=== PATIENT | female | born 2005 ===

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

== ENCOUNTER 2025-05-26 19:39 | Emergency (ER) | payer OTHER ==
[~2025-05-26] VITALS: Ht 160 cm; Wt 60.0 kg
--- NOTE | 2025-05-26 20:14 | ED.PDOC ---
General HPI Comments 19-year-old female complains of intermittent sharp pelvic pain that radiates to her lower back and lower abdomen at times. Patient also noted some swollen lymph nodes in her pelvic area. Chief Complaint: Pelvic Pain Time Seen by MD: 20:00 Allergies: Coded Allergies: NO KNOWN ALLERGIES (Unverified , 06/17/21) Home Meds Active Scripts Metronidazole (Flagyl) 500 Mg Tab, 1 TAB PO BID for 7 Days, #14 TAB Prov:MARILYN TREVINO MD 05/26/25 Sulfamethoxazole W/Trimethopri (Bactrim Ds Tablet) 1 Tab Tb, 1 TAB PO BID for 7 Days, #14 TAB Prov:MARILYN TREVINO MD 05/26/25 Information Source: Patient Mode of Arrival: Ambulatory Severity: Moderate Timing: Days Duration: Since onset, Intermittent Past Medical History PAST MEDICAL HISTORY: Denies Family History Family History: Reviewed,noncontributory to illness Social History Smoker: Non-Smoker Alcohol: Denies ETOH Use Drugs: Denies Drug Use Lives In: Home Constitutional: reports: malaise Gastrointestinal: reports: abdominal pain, nausea Genitourinary: reports: pain All Other Systems: Reviewed and Negative Physical Exam General Appearance: Mild Distress HEENT: Normal ENT Inspection, Pharynx Normal, TMs Normal Neck: Full Range of Motion, Non-Tender, Normal, Normal Inspection Respiratory: Chest Non-Tender, Lungs Clear, No Accessory Muscle Use, No Respiratory Distress, Normal Breath Sounds Cardiovascular: No Edema, No JVD, No Murmur, No Gallop, Normal Peripheral Pulses, Regular Rate/Rhythm Breast Exam: Deferred Gastrointestinal: Tenderness Genitalia: Deferred Pelvic: Deferred Rectal: Deferred Extremities: No calf tenderness, Normal capillary refill, Normal inspection, Normal range of motion, Non-tender, No pedal edema Musculoskeletal : Apperance: Normal Neurologic: Alert, 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 Was a procedure done?: No Differential Diagnosis Kidney stone (Female): Aortic dissection, , Appendicitis, Bowel obstruction, Cholelithiasis, Ectopic , Pancreatitis, Pyelonephritis, Renal failure, Urinary obstruction, Urolithiasis, Other X-Ray, Labs, Meds, VS Vital Signs Date Time Temp Pulse Resp B/P (MAP) Pulse Ox O2 Delivery O2 Flow Rate FiO2 05/26/25 22:42 98.2 75 14 115/62 (79) 98 98.2 05/26/25 19:41 98.4 88 18 120/75 100 98.4 Lab Test 05/26/25 20:35 05/26/25 20:13 Range/Units Urine Color Yellow Yellow Urine Clarity Clear Clear Urine pH 6.0 5.0-9.0 Urine Specific [place] 1.027 1.001-1.035 Urine Protein Negative Negative Urine Ketones Trace Negative Urine Blood Trace H Negative /uL Urine Nitrite Negative Negative Urine Bilirubin Negative Negative Urine Urobilinogen Normal Negative mg/dL Urine Leukocyte Esterase 2+ Negative /uL Urine RBC 3 0 - 4 /hpf Urine Microscopic WBC 17 H 0-5 /HPF Urine Squamous Epithelial Cells Few <5 /hpf Urine Bacteria Few H None Seen /hpf Urine Mucus Few None Seen Urine Glucose Normal Normal mg/dL Urine Test Negative Negative Chlamydia trachomatis (MAYURI) Pending Neisseria gonorrhoeae (MAYURI) Pending White Blood Count 8.3 4.4-10.8 10^3/uL Red Blood Count 4.68 4.0-5.20 10^6/uL Hemoglobin 13.1 12.2-16.2 g/dL Hematocrit 38.5 36.0-46.0 % Mean Corpuscular Volume 82.2 80.0-100.0 fL Mean Corpuscular Hemoglobin 27.9 L 28.0-32.0 pg Mean Corpuscular Hemoglobin Concent 34.0 32.0-36.0 g/dL Red Cell Distribution Width 13.6 11.8-14.3 % Platelet Count 221 140-450 10^3/uL Mean Platelet Volume 10.3 6.9-10.8 fL Neutrophils (%) (Auto) 66.2 37.0-80.0 % Lymphocytes (%) (Auto) 23.5 10.0-50.0 % Monocytes (%) (Auto) 8.2 0.0-12.0 % Eosinophils (%) (Auto) 1.4 0.0-7.0 % Basophils (%) (Auto) 0.7 0.0-2.0 % Neutrophils # (Auto) 5.5 1.6-8.6 10 ^3/uL Lymphocytes # (Auto) 1.9 0.4-5.4 10 ^3/uL Monocytes # (Auto) 0.7 0-1.3 10 ^3/uL Eosinophils # (Auto) 0.1 0-0.8 10 ^3/uL Basophils # (Auto) 0.1 0-0.2 10 ^3/uL Nucleated Red Blood Cells 0.1 % Sodium Level 142 136-145 mmol/L Potassium Level 3.7 3.5-5.1 mmol/L Chloride Level 106 98-107 mmol/L Carbon Dioxide Level 26 20-31 mmol/L Anion Gap 10 5-15 Blood Urea Nitrogen 8 L 9-23 mg/dL Creatinine 0.82 0.550-1.02 mg/dL Glomerular Filtration Rate Calc 104 >90 mL/min BUN/Creatinine Ratio 9.8 L 10.0-20.0 Serum Glucose 105 74-106 mg/dL Calcium Level 9.0 8.7-10.4 mg/dL Current Medications Medications (Trade) Dose Ordered Sig/Marimar Route Start Time Stop Time Status Last Admin Ceftriaxone Sodium (Rocephin W Lidocaine IM) 500 mg ONCE ONCE IM 05/26/25 20:45 05/26/25 20:46 DC 05/26/25 20:45 Azithromycin (Zithromax Tablet) 1,000 mg ONCE ONCE PO 05/26/25 20:45 05/26/25 20:46 DC 05/26/25 20:45 Time of 1ST Reevaluation: 20:13 Reevaluation 1ST: Unchanged Patient Education/Counseling: Diagnosis, Treatment Family Education/Counseling: No Family Present SEPSIS Sepsis Screen Date sepsis recognized/suspect: May 26, 2025 Time Sepsis recognized/suspect: 1943 Recent Procedure: No On Antibiotic Therapy: Yes (CEFALEXIN, NITROFURANTIN ) Respiratory Rate >20: No Heart Rate >90: No Temp<36 C (96.8 F) or >38.3 C: No SBP <90 or MAP <65 mmHG: No New Acute Mental Status Change: No Is the patient on CPAP, BIPAP,: No Physician Orders Pelvic (05/26/25 20:01) Chlamydia/Gc Amplification (05/26/25 20:14) Vital Signs Date Time Temp Pulse Resp B/P (MAP) Pulse Ox O2 Delivery O2 Flow Rate FiO2 05/26/25 22:42 98.2 75 14 115/62 (79) 98 98.2 05/26/25 19:41 98.4 88 18 120/75 100 98.4 Laboratory Tests Test 05/26/25 20:13 White Blood Count 8.3 10^3/uL (4.4-10.8) Medications Medications Dose Ordered Sig/Marimar Route Start Time Stop Time Status Last Admin Dose Admin Azithromycin 1,000 mg ONCE ONCE PO 05/26/25 20:45 05/26/25 20:46 DC 05/26/25 20:45 Ceftriaxone Sodium 500 mg ONCE ONCE IM 05/26/25 20:45 05/26/25 20:46 DC 05/26/25 20:45 Departure 1 Departure Time of Disposition: 22:00 Impression: Primary Impression: Pelvic pain Disposition: 01 HOME / SELF CARE / HOMELESS Condition: Stable e-Prescriptions Metronidazole (Flagyl) 500 Mg Tab 1 TAB PO BID for 7 Days, #14 TAB Prov: MARILYN TREVINO MD 05/26/25 Sulfamethoxazole W/Trimethopri (Bactrim Ds Tablet) 1 Tab Tb 1 TAB PO BID for 7 Days, #14 TAB Prov: MARILYN TREVINO MD 05/26/25 Discharged With: Self Critical Care Note Critical Care Time?: No Stability Stability form required: No Heart Score Heart Score: Heart Score Response (Comments) Value History N/A 0 EKG N/A 0 Age N/A 0 Risk Factors N/A 0 Troponin N/A 0 Total 0 MARILYN TREVINO MD May 26, 2025 20:14
[2025-05-26 20:25] LABS: Hematocrit 38.5 % (36.0-46.0); Hemoglobin 13.1 g/dL (12.2-16.2); Mean Corpuscular Hemoglobin 27.9 pg (28.0-32.0); Mean Corpuscular Volume 82.2 fL (80.0-100.0); Nucleated Red Blood Cells % 0.1 %
[2025-05-26 20:29] LABS: Chloride 106 mmol/L (98-107); Potassium 3.7 mmol/L (3.5-5.1); Sodium 142 mmol/L (136-145)
[2025-05-26 20:30] LABS: Anion Gap 10 (5-15); Carbon Dioxide 26 mmol/L (20-31)
[2025-05-26 20:31] LABS: Calcium 9.0 mg/dL (8.7-10.4)
[2025-05-26 20:35] LABS: BUN/Creatinine Ratio 9.8 (10.0-20.0); Glucose 105 mg/dL (74-106)
[2025-05-26 20:37] LABS: Blood Urea Nitrogen 8 mg/dL (9-23)
[2025-05-26] MEDS: AZITHROMYCIN 250 MG TAB PO ONE (20:45)
[2025-05-26] MEDS: cefTRIAXone W LIDOCAINE 500 MG IM IM ONE (20:45)
--- NOTE | 2025-05-26 21:01 | DVH ---
EXAM: US PELVIC HISTORY: pelvic pain COMPARISON: None TECHNIQUE: Transabdominal imaging was utilized. Grayscale and color doppler evaluation. Images were stored in the patient's permanent medical record. FINDINGS: UTERUS: 6.4 x 3.4 x 5.3 cm. Endometrial stripe: 0.6 cm. Anteverted uterus appears homogeneous. RIGHT OVARY: 2.5 x 1.2 x 1.7 cm.Normal vascularity. No suspicious masses or cysts. LEFT OVARY: 1.9 x 1.3 x 2.4 cm. Normal vascularity. No suspicious masses or cysts. OTHER: No free fluid is identified. IMPRESSION: 1. Unremarkable pelvic ultrasound.
[2025-05-26] MEDS: cefTRIAXone SOD 1,000 MG VL ONE (21:16)
[2025-05-26 21:53] LABS: Urine Protein, UAD Negative (Negative)
[2025-05-26] MEDS ORDERED: METR-344 PO (22:32)
[2025-05-26] MEDS ORDERED: BACDST PO (22:32)
[2025-05-26 22:42] VITALS: BP 115/62; PULSE 75; RESP 14; TEMP 98.2; O2SAT 98
[2025-05-29 05:09] LABS: Chlamydia Trachomatis, NAA Negative (Negative); Neisseria gonorrhoeae, NAA Negative (Negative)
== END 2025-05-26 22:41 | disposition home or self-care (01) ==
LOC: ER 19:39
DX: R10.20 Pelvic and perineal pain unspecified side (principal)
CPT/HCPCS: 36415; 76856; 80048; 81001; 81025; 85025; 87491; 87591; 96372; 99285; J0696